=== PATIENT | female | born 1965 | race Caucasian/White ===

== ENCOUNTER 2020-06-16 20:58 | Emergency (ER) | payer MEDICAID ==
[~2020-06-16] VITALS: Ht 160 cm; Wt 92.2 kg
[2020-06-16 21:15] VITALS: Ht 160 cm; Wt 92.2 kg
[2020-06-16] MEDS ORDERED: PREDNISONE20 MG PO (23:22)
[2020-06-16] MEDS ORDERED: PROAIR RES117 MCG/Ac INH (23:22)
[2020-06-17 01:38] VITALS: BP 114/74
== END 2020-06-17 01:38 | disposition home or self-care (01) ==
LOC: ED 20:58
DX: J44.9 Chronic obstructive pulmonary disease, unspecified (principal); M25.562 Pain in left knee; Z88.2 Allergy status to sulfonamides